=== PATIENT | female | born 1985 | race African-American/Black ===

== ENCOUNTER 2020-04-09 11:28 | Day surgery (SDC) | payer OTHER ==
[2020-04-08 13:27] VITALS: BMI 47.2
[~2020-04-09 11:28] MED LIST: PROPOFOL 200 MG/20 ML VIAL ONE
[2020-04-09] MEDS ORDERED: Fentanyl 100 MCG/2 ML VIAL ONE (14:11)
--- NOTE | 2020-04-09 15:12 | OP ---
DATE OF PROCEDURE: 04/09/2020 TITLE OF PROCEDURE: Esophagogastroduodenoscopy with biopsy. PREPROCEDURE DIAGNOSES: 1. Severe iron-deficiency anemia (hemoglobin 9.9). 2. Evaluate upper gastrointestinal tract for possible source of gastrointestinal bleeding. POSTPROCEDURE DIAGNOSES: 1. Exam to 2nd portion of duodenum. 2. Small sliding hiatal hernia (1 to 1.5 cm). 3. Mild grade A esophagitis at 36 cm, biopsied. 4. Normal stomach. 5. Normal duodenum, biopsied for histology. 6. No evidence of gastric or duodenal ulcers. 7. No small bowel vascular ectasias. PROCEDURE IN DETAIL: Written informed consent was obtained. The patient was brought to the endoscopy suite. Total intravenous anesthesia was administered by Ms. Meghan Lacey CRNA. The patient was placed in the left lateral decubitus position. A bite block was inserted into the mouth. A [employer] video diagnostic gastroscope was introduced into the oral cavity and the esophagus was carefully intubated. The gastroscope was advanced under direct visualization to the 2nd portion of the duodenum. Endoscopic findings revealed a small sliding hiatal hernia about 1 to 1.5 cm long. This was associated with grade A distal esophagitis at 36 cm. Biopsies were obtained for histology. There was no evidence of esophageal ulcer. The stomach was entered and carefully examined. This included a retroflexed view of the cardia and fundus. The stomach was normal. No gastric ulcer was identified. In the duodenum from the bulb to the 2nd portion, the mucosa appeared normal. No ulcers or vascular ectasias were identified. Biopsies were obtained in the 2nd portion of the duodenum to evaluate for any microscopic changes. The stomach was decompressed as the endoscope was removed from the stomach. There were no immediate complications. She was repositioned for the colonoscopy. RECOMMENDATIONS: 1. Await biopsy results. 2. Ask the patient to call me in 1 week for biopsy results. 3. Pepcid or Prilosec 20 mg daily as needed for indigestion or reflux. 4. Proceed with colonoscopy. Job ID: [id number]
--- NOTE | 2020-04-09 15:17 | OP ---
DATE OF PROCEDURE: 04/09/2020 TITLE OF PROCEDURE: Ileocolonoscopy. PREPROCEDURE DIAGNOSES: 1. Severe iron-deficiency anemia (hemoglobin 9.9). 2. Evaluation of colon to examine for a possible lower gastrointestinal source of anemia. PROCEDURE IN DETAIL: Written informed consent was obtained. Upon completion of the EGD, the patient was repositioned for the colonoscopy. Total intravenous anesthesia was administered by Ms. Meghan Lacey. The patient was placed in the left lateral decubitus position. A digital rectal exam revealed small perianal tags and 1 swollen, non-thrombosed hemorrhoid. A [employer] video colonoscope was inserted through the anal canal and advanced under direct visualization to the cecum. The ileocecal valve was intubated and a brief inspection was made of the distal terminal ileum. The quality of the bowel preparation was good. Endoscopic findings revealed a normal-appearing distal terminal ileum. The cecum, ascending colon, transverse colon, left colon, and rectum were all carefully examined as the colonoscope was slowly withdrawn. No polyp, mass, ulcer, vascular ectasia, or diverticulum was identified. In the rectum, retroflexed view demonstrated small internal hemorrhoids that were not actively bleeding. The colon was decompressed as the colonoscope was completely removed from the patient. She was transferred to the Day Stay surgery area for postprocedure monitoring. There were no immediate complications. RECOMMENDATIONS: 1. Resume previous diet and medications. 2. Advise Metamucil powder or capsules daily. 3. Soak in a warm sitz bath for 10 minutes 3 times a day for the next 2 days. 4. Apply Preparation-H cream to swollen hemorrhoid t.i.d. p.r.n. 5. Repeat colonoscopy at age 46 for colon cancer screening purposes. 6. Follow up with Dr. Olsen in the next 2 to 3 weeks for further evaluation of the anemia. 7. Would recommend daily iron supplementation, ferrous sulfate 325 mg p.o. b.i.d., for at least 6 weeks. 8. Follow up with GI as needed. Job ID: [id number]
== END 2020-04-09 15:55 | disposition home or self-care (01) ==
LOC: SDC 11:28
PROVIDERS: ATTEND Internal Medicine Gastroenterology
PROC: 0DJD8ZZ Inspection of Lower Intestinal Tract, Via Natural or Artificial Opening Endoscopic (ICD-10-PCS; principal; 2020-04-09)
PROC: 0DB38ZX Excision of Lower Esophagus, Via Natural or Artificial Opening Endoscopic, Diagnostic (ICD-10-PCS; principal; 2020-04-09)
DX: D50.9 Iron deficiency anemia, unspecified (principal); K20.90 Esophagitis, unspecified without bleeding; K44.9 Diaphragmatic hernia without obstruction or gangrene; K64.4 Residual hemorrhoidal skin tags; K64.8 Other hemorrhoids; Z79.899 Other long term (current) drug therapy
CPT/HCPCS: 88305; J2704; J3010